=== PATIENT | female | born 2000 | race Two or more races ===

== ENCOUNTER 2022-08-28 17:15 | Emergency (ER) | payer OTHER ==
[~2022-08-28] VITALS: Ht 149.9 cm; Wt 72.6 kg
[2022-08-28] MEDS ORDERED: ZOFRAN8 MG PO (18:57)
[2022-08-28] MEDS ORDERED: PEPCID AC20 MG PO (18:57)
[2022-08-28] MEDS ORDERED: TORADOL60 MG (19:01)
== END 2022-08-28 19:17 | disposition home or self-care (01) ==
LOC: ER 17:15
DX: K29.60 Other gastritis without bleeding (principal); Z91.048 Other nonmedicinal substance allergy status

== ENCOUNTER 2023-12-16 13:14 | Emergency (ER) | payer OTHER ==
[~2023-12-16] VITALS: Ht 149.9 cm; Wt 72.6 kg
[~2023-12-16 13:14] MED LIST: PEPCID AC20 MG PO; TORADOL60 MG; ZOFRAN8 MG PO
[2023-12-16] MEDS ORDERED: ANTICONCEPTIVOS (14:13)
[2023-12-16 14:14] VITALS: BP 111/73; O2SAT 99
[2023-12-16] MEDS ORDERED: 0.9 % SODIUM CHLORIDE 1,000 ML IV ONE (17:00)
[2023-12-16 17:29] LABS: HEMATOCRIT 39.7 % (36.0-45.00); HEMOGLOBIN 13.4 g/dL (12.0-15.00); MEAN CELL VOLUME 85.6 fL (80.00-100.00); MEAN CORPUSCULAR HEMOGLOBIN 28.8 pg (27.00-32.0); MEAN CORPUSCULAR HGB CONC 33.6 g/dl (32.0-36.0); PLATELET COUNT 249 K/uL (150-450); RED BLOOD COUNT 4.63 M/uL (4.00-6.00); RED CELL DISTRIBUTION WIDTH 13.1 % (11.5-14.5)
[2023-12-16 17:53] LABS: ALBUMIN 3.6 gm/dL (3.4-5.0); BILIRUBIN TOTAL 0.44 mg/dL (0.3-1.2); CALCIUM 9.6 mg/dL (8.5-10.1); CREATININE SERUM 0.75 mg/dL (0.55-1.02); GFR 96.63; POTASSIUM 3.81 mEq/L (3.5-5.1); TOTAL PROTEIN 7.6 gm/dL (6.4-8.2)
== END 2023-12-16 19:11 | disposition home or self-care (01) ==
LOC: ER 13:15
PROVIDERS: General Practice
DX: N93.9 Abnormal uterine and vaginal bleeding, unspecified (principal); Z91.018 Allergy to other foods